=== PATIENT | male | born 1950 | race Caucasian/White ===

== ENCOUNTER 2018-02-12 11:03 | Inpatient (IN) | payer MEDICARE ==
[2018-02-11 15:37] LABS: BASOPHILS # (AUTO) 0.1 X10'3 (0-0.2); BASOPHILS % (AUTO) 1.3 % (0-1); EOSINOPHILS # (AUTO) 0.3 X10'3 (0-0.9); EOSINOPHILS % (AUTO) 4.2 % (0-6); LYMPHOCYTES % (AUTO) 27.4 % (21-51); MEAN CORPUSCULAR HGB CONC 33.4 % (33.0-36.5); MEAN CORPUSCULAR VOLUME 89.8 FL (78-98); MEAN PLATELET VOLUME 9.2 FL (7.4-10.4); MONOCYTES # (AUTO) 0.6 X10'3 (0-0.9); MONOCYTES % (AUTO) 7.8 % (2-12); NEUTROPHILS # (AUTO) 4.2 X10'3 (1.8-7.7); NEUTROPHILS % (AUTO) 59.3 % (42-75); PRE OP HEMATOCRIT 43.1 % (42.0-52.0); PRE OP HEMOGLOBIN 14.4 g/dL (14.0-17.9); PRE OP PLATELET COUNT 205 X10'3 (140-440); RED CELL DISTRIBUTION WIDTH 12.6 % (11.5-14.5)
[2018-02-11 15:39] LABS: ALBUMIN 3.6 G/DL (3.4-5.0); ALKALINE PHOSPHATASE 88 IU/L (46-116); BLOOD UREA NITROGEN 16 MG/DL (7-18); CALCIUM 8.5 MG/DL (8.5-10.1); CHLORIDE 104 MMOL/L (99-107); PRE OP ALT 41 U/L (30-65); PRE OP ANION GAP 11 (8-16); PRE OP AST 25 U/L (10-37); PRE OP BILIRUB, TOTAL 0.4 MG/DL (0.0-1.0); PRE OP GLUCOSE 106 MG/DL (70-104); PRE OP POTASSIUM 3.8 MMOL/L (3.4-5.1); PRE OP SODIUM 138 MMOL/L (135-145); TOTAL CARBON DIOXIDE 23.1 MMOL/L (24-32); TOTAL PROTEIN 7.1 G/DL (6.4-8.2); eGFR 74 ML/MIN
[2018-02-12] VITALS (16 sets, daily range): BP systolic 115–150; BP diastolic 48–112
[~2018-02-12] VITALS: Ht 170.2 cm; Wt 116.1 kg
[~2018-02-12 11:03] MED LIST: ACET-1015 PO; ATOR80TA PO; Cefazolin 2GM/50ML dext iso,osmotic IVPB IV ONE; DOCUMENT DATE & TIME OF BETA-BLOCKER PO ONE; METO25TA6 PO; VANCOMYCIN INJ 1000 MG in NORMAL SALINE 250ml IV.SOLN IV ONE; famotidine 20mg tablet PO ONE; ringers solution, lacted 1,000 ML IV ONE; ringers solution, lacted 1,000 ML IV SCH; tranexamic acid inj. 1,200 MG in normal saline 100ml IV soln 88 ML IV ONE
[2018-02-12] MEDS ORDERED: ASPI-611 PO (11:34)
[2018-02-12] MEDS ORDERED: ketorolac trometh. 30mg/ml inj. ONE (12:50)
[2018-02-12] MEDS ORDERED: ROPIVAcaine 0.5% (5mg/ml) 30ml vial ONE ×2 (12:50→12:58)
[2018-02-12] MEDS ORDERED: vancomycin 1,000mg inj ONE (12:50)
[2018-02-12] MEDS ORDERED: sevoflurane 250ml liquid IH ONE (13:00)
[2018-02-12] MEDS ORDERED: propofol inj 20 ML IV ONE (13:03)
[2018-02-12] MEDS ORDERED: succinylcholine 20mg/ml inj IV ONE (13:03)
[2018-02-12] MEDS ORDERED: LIDOcaine 2% (20mg/ml) 5ml vial ONE (13:03)
[2018-02-12] MEDS ORDERED: midazolam 2 mg/2 ml injection ONE (13:14)
[2018-02-12] MEDS ORDERED: fentaNYL /PF 50mcg/ml 5ml ampule ONE (13:14)
[2018-02-12] MEDS ORDERED: dexamethasone sod phosphate 4mg/ml inj. ONE (13:34)
[2018-02-12] MEDS ORDERED: ondansetron/PF 4mg/2ml inj ONE (13:34)
[2018-02-12] MEDS ORDERED: ringers solution, lacted 1,000 ML IV SCH (13:51)
[2018-02-12] MEDS ORDERED: ondansetron/PF 4mg/2ml inj IV PRN ×2 (13:55→15:25)
[2018-02-12] MEDS ORDERED: morphine 4 MG/ML inj SYRINge IV PRN ×2 (13:55)
[2018-02-12] MEDS ORDERED: fentaNYL/PF 50MCG/1 ML 2ML syringe IV PRN ×2 (13:55)
[2018-02-12] MEDS ORDERED: hydrALAZINE 20mg/ml inj. IV PRN (13:55)
[2018-02-12] MEDS ORDERED: enalaprilat dihydrate 2.5mg/2ml vial IV PRN (13:55)
[2018-02-12] MEDS ORDERED: bisacodyl 10mg suppository rectal RC PRN (15:25)
[2018-02-12] MEDS ORDERED: diphenhydrAMINE 25mg capsule PO PRN ×2 (15:25)
[2018-02-12] MEDS ORDERED: magnesium hydroxide 30ml (MOM) UD suspension PO PRN (15:25)
[2018-02-12] MEDS ORDERED: HYDROmorphone 1 mg/ml syringe IV PRN ×2 (15:25)
[2018-02-12] MEDS ORDERED: acetaminophen 325mg tablet PO PRN (15:25)
[2018-02-12] MEDS ORDERED: ACETAMINOPHEN 500 MG PO PRN (15:25)
[2018-02-12] MEDS: potassium cl 20mEq in 1/2 NS 1,000 ML IV SCH (16:59)
[2018-02-12] MEDS: ceFAZolin 1GM/D5W- ADD-VANTAGE 50 ML IV SCH ×2 (16:59→23:56)
[2018-02-12] MEDS ORDERED: NORMAL SALINE IV ONE (18:30)
[2018-02-12] MEDS ORDERED: TRANEXAMIC ACID IV ONE (18:30)
[2018-02-12] MEDS ORDERED: vancomycin/NS 1 GM ADD-VANTAGE 250 ML IV SCH (20:00)
[2018-02-12] MEDS: ketorolac tromethamine 15mg/ml inj. IV SCH (21:05)
[2018-02-12] MEDS: gabapentin 300mg capsule PO SCH (21:05)
[2018-02-12] MEDS: acetaminophen 325mg tablet PO SCH (21:06)
[2018-02-12] MEDS: metoprolol tartrate 25mg tablet PO SCH (21:06)
[2018-02-12] MEDS: sennosides 8.6mg tablet PO SCH (21:07)
[2018-02-13 02:00] VITALS: BP 107/43
[2018-02-13] MEDS: acetaminophen 325mg tablet PO SCH ×4 (02:35→20:34)
[2018-02-13] MEDS: potassium cl 20mEq in 1/2 NS 1,000 ML IV SCH ×3 (02:36→15:24)
[2018-02-13] MEDS: ketorolac tromethamine 15mg/ml inj. IV SCH ×3 (02:36→13:38)
[2018-02-13 06:00] VITALS: BP 125/61
[2018-02-13 06:58] LABS: BASOPHILS % (AUTO) 0.3 % (0-1); EOSINOPHILS % (AUTO) 0 % (0-6); HEMATOCRIT 38.3 % (42.0-52.0); LYMPHOCYTES % (AUTO) 8.6 % (21-51); MEAN CORPUSCULAR HEMOGLOBIN 30.6 PG (27.0-31.0); MEAN CORPUSCULAR HGB CONC 34.1 % (33.0-36.5); MEAN CORPUSCULAR VOLUME 89.8 FL (78-98); MEAN PLATELET VOLUME 8.9 FL (7.4-10.4); MONOCYTES # (AUTO) 0.4 X10'3 (0-0.9); NEUTROPHILS # (AUTO) 10.6 X10'3 (1.8-7.7); NEUTROPHILS % (AUTO) 88.1 % (42-75); PLATELET COUNT 184 X10'3 (140-440); RED BLOOD COUNT 4.26 X10'6 (4.70-6.10); RED CELL DISTRIBUTION WIDTH 13.8 % (11.5-14.5); WHITE BLOOD COUNT 12.1 X10'3 (4.5-11.0)
[2018-02-13 06:59] LABS: ANION GAP 11 (8-16); CHLORIDE 105 MMOL/L (99-107); POTASSIUM 4.5 MMOL/L (3.5-5.1); SODIUM 137 MMOL/L (135-145); TOTAL CARBON DIOXIDE 21.4 MMOL/L (24-32)
[2018-02-13] MEDS: atorvastatin 20mg tablet PO SCH (08:15)
[2018-02-13] MEDS: aspirin 81mg tablet.DR PO SCH (08:15)
[2018-02-13] MEDS: metoprolol tartrate 25mg tablet PO SCH ×2 (08:16→20:33)
[2018-02-13] MEDS: gabapentin 300mg capsule PO SCH ×3 (08:16→20:33)
[2018-02-13 14:00] VITALS: BP 132/70
[2018-02-13 18:00] VITALS: BP 145/52
[2018-02-13] MEDS: celeCOXIB 100mg capsule PO SCH (20:33)
[2018-02-13] MEDS: sennosides 8.6mg tablet PO SCH (20:33)
[2018-02-13] MEDS: oxyCODONE IR 5mg (immed. release) tablet PO PRN (20:36)
[2018-02-13 22:00] VITALS: BP 125/61
[2018-02-14] MEDS: oxyCODONE IR 5mg (immed. release) tablet PO PRN ×3 (03:00→13:09)
[2018-02-14] MEDS: acetaminophen 325mg tablet PO SCH ×3 (03:00→13:10)
[2018-02-14 06:00] VITALS: BP 143/88
[2018-02-14 06:58] LABS: BASOPHILS # (AUTO) 0.1 X10'3 (0-0.2); BASOPHILS % (AUTO) 0.6 % (0-1); EOSINOPHILS % (AUTO) 0.4 % (0-6); HEMATOCRIT 37.1 % (42.0-52.0); HEMOGLOBIN 12.7 g/dl (14.0-17.9); LYMPHOCYTES # (AUTO) 1.8 X10'3 (1.1-4.8); LYMPHOCYTES % (AUTO) 14.8 % (21-51); MEAN CORPUSCULAR HEMOGLOBIN 30.8 PG (27.0-31.0); MEAN CORPUSCULAR HGB CONC 34.3 % (33.0-36.5); MEAN CORPUSCULAR VOLUME 89.9 FL (78-98); MEAN PLATELET VOLUME 9.2 FL (7.4-10.4); MONOCYTES # (AUTO) 0.7 X10'3 (0-0.9); MONOCYTES % (AUTO) 5.5 % (2-12); NEUTROPHILS # (AUTO) 9.6 X10'3 (1.8-7.7); NEUTROPHILS % (AUTO) 78.7 % (42-75); PLATELET COUNT 173 X10'3 (140-440); RED BLOOD COUNT 4.13 X10'6 (4.70-6.10); WHITE BLOOD COUNT 12.2 X10'3 (4.5-11.0)
[2018-02-14] MEDS: gabapentin 300mg capsule PO SCH ×2 (08:00→13:09)
[2018-02-14] MEDS: atorvastatin 20mg tablet PO SCH (08:01)
[2018-02-14] MEDS: celeCOXIB 100mg capsule PO SCH (08:02)
[2018-02-14] MEDS: metoprolol tartrate 25mg tablet PO SCH (08:02)
[2018-02-14] MEDS: aspirin 81mg tablet.DR PO SCH (08:02)
[2018-02-14 10:00] VITALS: BP 129/71
[2018-02-14] MEDS ORDERED: acetaminophen 325mg tablet PO PRN (15:25)
== END 2018-02-14 13:30 | disposition home or self-care (01) | DRG 483 ==
LOC: PAS IN 11:03 → EDSTATUS 14:00 → PAS IN 14:15 → EDSTATUS 14:15 → ORTHO 4S 14:15
PROVIDERS: ADMIT Orthopaedic Surgery; ATTEND Orthopaedic Surgery
PROC: 3E0T3BZ Introduction of Anesthetic Agent into Peripheral Nerves and Plexi, Percutaneous Approach (ICD-10-PCS; 2018-02-12)
PROC: 0RRJ00Z Replacement of Right Shoulder Joint with Reverse Ball and Socket Synthetic Substitute, Open Approach (ICD-10-PCS; principal; 2018-02-12 13:05)
DX: M19.011 Primary osteoarthritis, right shoulder (principal); D62 Acute posthemorrhagic anemia; Z68.41 Body mass index [BMI] 40.0-44.9, adult; M75.121 Complete rotator cuff tear or rupture of right shoulder, not specified as traumatic; E66.9 Obesity, unspecified; E78.5 Hyperlipidemia, unspecified; I10 Essential (primary) hypertension; I25.10 Atherosclerotic heart disease of native coronary artery without angina pectoris; W01.0XXA Fall on same level from slipping, tripping and stumbling without subsequent striking against object, initial encounter; Z95.1 Presence of aortocoronary bypass graft; Z79.899 Other long term (current) drug therapy; Z79.82 Long term (current) use of aspirin
CPT/HCPCS: 36415; 80051; 80053; 85025; 87070; 93005; 97110; 97116; 97161; 97530; A4565; A6255; A7000; J0330; J0690; J1100; J1885; J2001; J2250; J2405; J2704; J2795; J3010; J3370; J7030; J7040; J7120